=== PATIENT | male | born 1995 | race Caucasian/White ===

== ENCOUNTER 2020-01-02 18:14 | Emergency (ER) | payer MEDICAID ==
[~2020-01-02] VITALS: Ht 167.6 cm; Wt 68.0 kg
[2020-01-02] MEDS ORDERED: CLONIDINE HCL 0.1 MG TABLET ONE (18:50)
[2020-01-02] MEDS ORDERED: ONDANSETRON 4 MG TAB.RAPDIS ONE (18:51)
[2020-01-02] MEDS ORDERED: LORAZEPAM INJ 2 MG/ML VIAL ONE (18:52)
[2020-01-02 18:59] VITALS: BP 120/80
[2020-01-02] MEDS ORDERED: CLONIDINE HCL 0.1 MG TABLET PO ONE (19:00)
[2020-01-02] MEDS ORDERED: ONDANSETRON 4 MG TAB.RAPDIS SL ONE (19:00)
[2020-01-02] MEDS ORDERED: diphenhydrAMINE HCL 50 MG/ML VIAL IM ONE (19:00)
[2020-01-02] MEDS ORDERED: diphenhydrAMINE HCL 50 MG/ML VIAL ONE (19:00)
[2020-01-02] MEDS ORDERED: LORAZEPAM INJ 2 MG/ML VIAL IM ONE (19:00)
--- NOTE | 2020-01-02 19:04 | NUR ---
Patient awake alert noted anxious meds given
--- NOTE | 2020-01-02 19:07 | NUR ---
Patient noted able to ambulated non difficulties his Dad will pick him up agrees
== END 2020-01-02 19:08 | disposition home or self-care (01) ==
LOC: ER 18:25
DX: F11.23 Opioid dependence with withdrawal (principal); F32.9 Major depressive disorder, single episode, unspecified
CPT/HCPCS: 96372 ×2; 99284; J1200; J2060; Q0162

== ENCOUNTER 2020-01-22 08:51 | Emergency (ER) | payer MEDICAID ==
[~2020-01-22] VITALS: Ht 167.6 cm; Wt 63.5 kg
[2020-01-22] MEDS ORDERED: IV NS 0.9% 1,000 ML BAG IV ONE (09:00)
--- NOTE | 2020-01-22 09:31 | NUR ---
PT REC'D TO ER C/O LOW BP FOR 3 DAYS . OFF HEROIN FOR 2 WEEKS ON METHADONE . IV STARTED 20G RT AC LABS AND CULTURES DDRAWN SENT TO [facility] EVALUATION BY ER PROVIDER.
[2020-01-22 09:32] LABS: BASOPHILS % (AUTO) 0.5 % (0.0-2.0); EOSINOPHILS % (AUTO) 4.7 % (0.0-6.0); HEMATOCRIT 48 % (39-51); HEMOGLOBIN 16.6 g/dL (13.5-17.5); LYMPHOCYTES # (AUTO) 0.9 /CMM (0.8-4.8); LYMPHOCYTES % (AUTO) 14.7 % (20.0-44.0); MEAN CORPUSCULAR HGB CONC 35 g/dl (31.0-36.0); MEAN CORPUSCULAR VOLUME 87 fL (80-96); MONOCYTES # (AUTO) 0.3 /CMM (0.1-1.30); MONOCYTES % (AUTO) 5.8 % (2.0-12.0); NEUTROPHILS # (AUTO) 4.3 /CMM (1.8-8.9); NEUTROPHILS % (AUTO) 74.3 % (43.0-81.0); PLATELET COUNT (AUTO) 193 /CMM (150-450); RED BLOOD CELL COUNT(AUTO) 5.47 MIL/uL (4.5-6.0); WHITE BLOOD COUNT (AUTO) 5.8 K/uL (4.3-11.0)
--- NOTE | 2020-01-22 09:32 | NUR ---
IV NS BOLUS GIVEN PER MD ORDER
[2020-01-22 09:39] LABS: CALCIUM, SERUM 9.3 mg/dL (8.5-10.1); CARBON DIOXIDE 32 mmol/L (21-32); CHLORIDE 101 mmol/L (98-107); CREATININE 1.1 mg/dL (0.6-1.3); GLUCOSE 115 mg/dL (74-106); POTASSIUM 3.9 mmol/L (3.5-5.1); SODIUM SERUM 138 mmol/L (136-145); UREA NITROGEN, BLOOD 15 mg/dL (7-18)
[2020-01-22 09:44] LABS: ALANINE AMINOTRANSFERASE 35 U/L (12-78); ALBUMIN 4.3 g/dL (3.4-5.0); ALKALINE PHOSPHATASE 81 U/L (46-116); ASPARTATE AMINOTRANSFERASE 18 U/L (15-37); BILIRUBIN,DIRECT 0.1 mg/dL (0.0-0.2); BILIRUBIN,TOTAL 0.6 mg/dL (0.2-1.0); TOTAL PROTEIN, SERUM 7.6 g/dL (6.4-8.2)
[2020-01-22 10:26] LABS: THYROID STIMULATING HORMONE 1.085 uIU/mL (0.358-3.74)
--- NOTE | 2020-01-22 10:50 | NUR ---
D DIMER 1.79 NOTIFIED MD
[2020-01-22] MEDS ORDERED: ALPRAZOLAM 0.5 MG TABLET ONE (10:57)
--- NOTE | 2020-01-22 10:59 | NUR ---
PT GIVEN XANAN 0.5 MG PO NOW
[2020-01-22] MEDS ORDERED: ALPRAZOLAM 0.5 MG TABLET PO ONE (11:00)
[2020-01-22] MEDS ORDERED: IOHEXOL-350 100 ML VIAL IV ONE (11:13)
--- NOTE | 2020-01-22 11:55 | NUR ---
PT ATE LUNCH PENDING CT RESULTS
--- NOTE | 2020-01-22 13:51 | NUR ---
PT. VERBALIZED UNDERSTANDING OF AFTERCARE INSTRUCTIONS.IV removed. Catheter intact and site benign. Pressure and 4x4 applied to site. No bleeding noted.
[2020-01-22 13:52] VITALS: BP 108/75
== END 2020-01-22 13:52 | disposition home or self-care (01) ==
LOC: ER 08:52
DX: I10 Essential (primary) hypertension (principal); R42 Dizziness and giddiness; T40.3X5A Adverse effect of methadone, initial encounter; Y92.89 Other specified places as the place of occurrence of the external cause
CPT/HCPCS: 36415; 71045; 71275; 80048; 80076; 83605; 84443; 84484; 85025; 85378; 85730; 87040 ×2; 93005; 93307; 96360; 99285; J7030; Q9967

== ENCOUNTER 2024-07-08 17:12 | Emergency (ER) | payer MEDICAID ==
[~2024-07-08] VITALS: Ht 167.6 cm; Wt 61.2 kg
[2024-07-08 17:47] VITALS: BP 132/70; TEMP 98.3; O2SAT 96
== END 2024-07-08 17:47 | disposition home or self-care (01) ==
LOC: ER 17:24
DX: F32.9 Major depressive disorder, single episode, unspecified (principal); F20.9 Schizophrenia, unspecified; F41.9 Anxiety disorder, unspecified